=== PATIENT | male | born 1970 | race Caucasian/White ===

== ENCOUNTER 2020-12-22 13:05 | Emergency (ER) | payer SELFPAY ==
[2020-12-22] MEDS ORDERED: HYDROCODONE/CHLORPHEN 5 ML/OSYR ONE (15:47)
[2020-12-22] MEDS ORDERED: ONDANSETRON 4 MG (ODT) TAB ONE (15:47)
[2020-12-22] MEDS ORDERED: ALBUTEROL INHALER 60 PUFF/8 GM IH ONE (15:48)
[2020-12-22] MEDS ORDERED: NA CHLORIDE 0.9% 1,000 ML ONE (15:48)
[2020-12-22 16:09] LABS: Absolute Lymphocytes (CBC) 0.6 K/uL (0.7-4.9); Basophils % 0.5 % (0-1.3); Hematocrit 45.7 % (39.6-49.0); Lymphocytes % 16.9 % (15.3-44.8); MPV 8.6 fL (7.6-11.3); RBC Red Blood Cell Count 5.25 M/uL (4.33-5.43)
--- NOTE | 2020-12-22 16:16 | RAD REPORT ---
EXAM DESCRIPTION: RAD - Chest Single View - 12/22/2020 3:26 pm CLINICAL HISTORY: SOB Chest pain. COMPARISON: No comparisons FINDINGS: Portable technique limits examination quality. Bilateral pulmonary opacities are present, greater on the left and lower lobe compatible with bacteri al infection/bronchitis. The heart is normal in size. No displaced fractures.
[2020-12-22] MEDS ORDERED: KETOROLAC 30 MG/ML INJ ONE (17:14)
[2020-12-22] MEDS ORDERED: CEFTRIAXONE/SWI 1gm 1 GM/10 ML SYR ONE (17:14)
[2020-12-22] MEDS ORDERED: LEVALBUTEROL 1.25 MG/3 ML NEB ONE (18:00)
[2020-12-22] MEDS ORDERED: predniSONE 20 MG TAB ONE (18:01)
--- NOTE | 2020-12-22 18:07 | ER ---
Nurse's Notes [facility] Name: Fariha Reich Age: 49 yrs Sex: Male : 1970 Arrival Date: 12/22/2020 Time: 13:05 Bed 16 Private MD: Diagnosis: Pneumonia due to SARS-associated coronavirus Presentation: 12/22 13:47 Chief complaint: Patient states: Covid+ 12/22/2020. S/S 12/20/2020. SOB since yesterday. ca1 Hurts to breathe, feels more tired than usual. Dull pain around lower ribs. Coronavirus screen: Client denies travel out of the [place] in the last 14 days. Client reports previous positive COVID test result. Date of collection: December 22, 2020 Staff notified of need for isolation. Ebola Screen: Patient negative for fever greater than or equal to 101.5 degrees Fahrenheit, and additional compatible Ebola Virus Disease symptoms Patient denies exposure to infectious person. Patient denies travel to an Ebola-affected area in the 21 days before illness onset. No symptoms or risks identified at this time. Initial Sepsis Screen: Does the patient meet any 2 criteria? No. Patient's initial sepsis screen is negative. Does the patient have a suspected source of infection? No. Patient's initial sepsis screen is negative. Risk Assessment: Do you want to hurt yourself or someone else? Patient reports no desire to harm self or others. Onset of symptoms was December 20, 2020. 13:47 Method Of Arrival: Ambulatory ca1 13:47 Acuity: KARLEE 3 ca1 Triage Assessment: 18:27 Respiratory: Onset: The symptoms/episode began/occurred. zb 18:28 Respiratory: the patient has moderate shortness of breath. zb Historical: - Allergies: 13:50 No Known Allergies; ca1 - Home Meds: 13:50 None [Active]; ca1 - PMHx: 13:50 None; ca1 - PSHx: 13:50 None; ca1 - Immunization history:: Adult Immunizations not immunized, Flu vaccine is not up to date. - Social history:: Smoking status: Patient denies any tobacco usage or history of. Screenin:46 Abuse screen: Denies threats or abuse. Denies injuries from another. Nutritional zb screening: No deficits noted. Tuberculosis screening: No symptoms or risk factors identified. Fall Risk None identified. Assessment: 15:30 General: Appears in no apparent distress. uncomfortable, Behavior is calm, cooperative, zb appropriate for age, Reports fever for > 3 days, feeling ill for > 3 days, fatigue for >3 days. Pain: Complains of pain in left breast Pain does not radiate. Pain currently is 7 out of 10 on a pain scale. Quality of pain is described as dull. Neuro: Level of Consciousness is awake, alert, obeys commands, Oriented to person, place, time, situation. Cardiovascular: Capillary refill < 3 seconds Patient's skin is warm and dry. Rhythm is regular. Respiratory: Reports shortness of breath at rest cough that is non-productive, persistent pain with cough pain with respiration Airway is patent Respiratory effort is even, unlabored, Respiratory pattern is regular, symmetrical, Breath sounds are diminished in left lower lobe. GI: Abdomen is round. EENT: Throat is clear is pink. Derm: Skin is intact, is healthy with good turgor, Skin is dry, Skin is normal, Skin temperature is warm. Musculoskeletal: Range of motion: intact in all extremities. 16:33 Reassessment: Patient appears in no apparent distress at this time. Patient and/or zb family updated on plan of care and expected duration. Pain level reassessed. Patient is alert, oriented x 3, equal unlabored respirations, skin warm/dry/pink. ECP at bedside. Patient states symptoms have improved. 17:36 Reassessment: Patient appears in no apparent distress at this time. Patient and/or zb family updated on plan of care and expected duration. Pain level reassessed. Patient is alert, oriented x 3, equal unlabored respirations, skin warm/dry/pink. ECP at bedside. order breathing tx. Patient states feeling better. Patient states symptoms have improved. 18:28 Reassessment: Patient appears in no apparent distress at this time. Patient and/or zb family updated on plan of care and expected duration. Pain level reassessed. Patient is alert, oriented x 3, equal unlabored respirations, skin warm/dry/pink. d/c instructions given . pat states he feels better. ambulated out with . gait even and steady. Vital Signs: 13:47 BP 133 / 86; Pulse 87; Resp 19 S; Temp 98.7(TE); Pulse Ox 100% on R/A; Weight 104.33 kg ca1 (R); Height 6 ft. 2 in. (187.96 cm) (R); Pain 3/10; 15:30 BP 131 / 73; Pulse 96; Resp 18; Pulse Ox 100% on R/A; zb 16:29 BP 134 / 73; Pulse 92; Resp 20; Pulse Ox 93% on R/A; zb 17:37 Pulse 85; Resp 20; Pulse Ox 94% on R/A; zb 18:28 BP 137 / 70; Pulse 89; Resp 19; Pulse Ox 98% on R/A; zb 13:47 Body Mass Index 29.53 (104.33 kg, 187.96 cm) ca1 ED Course: 13:05 Patient arrived in ED. as 13:50 Triage completed. ca1 13:50 Arm band placed on right wrist. ca1 14:48 Geovani Hendricks NP is PHCP. pm1 14:48 Shira Amaya MD is Attending Physician. pm1 14:52 Yue Kenny RN is Primary Nurse. zb 15:26 CXR XRAY In Process Unspecified. EDMS 15:46 Patient has correct armband on for positive identification. Bed in low position. Call zb light in reach. Side rails up X 1. Adult w/ patient. Pulse ox on. NIBP on. 15:46 Inserted saline lock: 20 gauge in left antecubital area, using aseptic technique. Blood zb collected. 18:27 No provider procedures requiring assistance completed. IV discontinued, intact, zb bleeding controlled, No redness/swelling at site. Pressure dressing applied. Administered Medications: 15:33 Drug: Albuterol HFA Inhaler 2 puffs Route: Inhalation; zb 17:00 Follow up: Response: No adverse reaction; Marked relief of symptoms zb 15:33 Drug: Ondansetron 4 mg Route: PO; zb 17:00 Follow up: Response: No adverse reaction; Marked relief of symptoms zb 15:33 Drug: Tussionex Pennkinetic ER (chlorpheniramine-hydrocodone) 5 ml Route: PO; zb 17:00 Follow up: Response: No adverse reaction; Marked relief of symptoms zb 15:44 Drug: NS 0.9% 1000 ml Route: IV; Rate: 1000 ml; Site: left antecubital; zb 16:59 Drug: Rocephin (cefTRIAXone) 1 grams Route: IV; Rate: calculated rate; Site: left zb antecubital; 17:30 Follow up: Response: No adverse reaction; Marked relief of symptoms; IV Status: zb Completed infusion; IV Intake: 20ml 17:00 Drug: TORadol (ketorolac) 30 mg Route: IVP; Site: left antecubital; zb 17:38 Follow up: Response: No adverse reaction; Marked relief of symptoms; Pain is decreased zb 17:47 Drug: Xopenex (levalbuterol) 1.25 mg Route: Inhalation; zb 18:20 Follow up: Response: No adverse reaction; Marked relief of symptoms zb 17:47 Drug: predniSONE 60 mg Route: PO; zb 18:25 Follow up: Response: No adverse reaction; Marked relief of symptoms zb Intake: 17:30 IV: 20ml; Total: 20ml. zb Outcome: 18:07 Discharge ordered by . pm1 18:27 Discharged to home ambulatory, with family. zb 18:27 Condition: stable 18:27 Discharge instructions given to patient, family, Instructed on discharge instructions, follow up and referral plans. Demonstrated understanding of instructions, follow-up care, medications, Prescriptions given X 5 18:29 Patient left the ED. zb Signatures: Dispatcher [employer] Louise Cassidy Patrick, NP BREWERY PUMPER pm1 Violette Guardado RN RN ca1 Brown, Zipporah, RN RN zdavie
--- NOTE | 2020-12-22 18:07 | EDPHYS ---
Physician Documentation [facility] Name: Fariha Reich Age: 49 yrs Sex: Male : 1970 Arrival Date: 12/22/2020 Time: 13:05 Bed 16 Private MD: ED Physician Shira Amaya HPI: 12/22 15:26 This 49 yrs old Male presents to ER via Ambulatory with complaints of pm1 Shortness Of Breath - covid+, Irregular Pulse. 15:26 The patient has shortness of breath at rest. Onset: The symptoms/episode began/occurred pm1 2 day(s) ago. Duration: The symptoms are continuous. The patient's shortness of breath is aggravated by nothing, is alleviated by nothing. Associated signs and symptoms: Pertinent positives: non-productive cough, Pertinent negatives: vomiting. Severity of symptoms: in the emergency department the symptoms are unchanged. The patient has not experienced similar symptoms in the past. The patient has been recently seen by a physician: with similar presenting complaints, and apparently given a diagnosis of covid. Historical: - Allergies: 13:50 No Known Allergies; ca1 - Home Meds: 13:50 None [Active]; ca1 - PMHx: 13:50 None; ca1 - PSHx: 13:50 None; ca1 - Immunization history:: Adult Immunizations not immunized, Flu vaccine is not up to date. - Social history:: Smoking status: Patient denies any tobacco usage or history of. ROS: 15:26 Cardiovascular: Negative for chest pain, palpitations, and edema. pm1 15:26 Abdomen/GI: Negative for abdominal pain, nausea, vomiting, diarrhea, and constipation, Back: Negative for injury and pain, MS/Extremity: Negative for injury and deformity, Skin: Negative for injury, rash, and discoloration, Neuro: Negative for headache, weakness, numbness, tingling, and seizure. 15:26 Constitutional: Positive for body aches, poor PO intake. 15:26 Respiratory: Positive for cough, shortness of breath. Exam: 15:26 Constitutional: This is a well developed, well nourished patient who is awake, alert, pm1 and in no acute distress. Head/Face: Normocephalic, atraumatic. 15:26 Back: No spinal tenderness. No costovertebral tenderness. Full range of motion. Skin: Warm, dry with normal turgor. Normal color with no rashes, no lesions, and no evidence of cellulitis. MS/ Extremity: Pulses equal, no cyanosis. Neurovascular intact. Full, normal range of motion. 15:26 Cardiovascular: Exam negative for acute changes, Rate: normal, Rhythm: regular, Pulses: no pulse deficits are appreciated. 15:26 Respiratory: Exam negative for acute changes, respiratory distress, shortness of breath, Breath sounds: rhonchi, that are mild, are heard in the left posterior upper lobe and left posterior lower lobe. 15:26 Abdomen/GI: Inspection: abdomen appears normal, Palpation: abdomen is soft and non-tender, in all quadrants. 15:26 Neuro: Exam negative for acute changes, Orientation: is normal, Mentation: is normal, Motor: is normal, moves all fours. Vital Signs: 13:47 BP 133 / 86; Pulse 87; Resp 19 S; Temp 98.7(TE); Pulse Ox 100% on R/A; Weight 104.33 kg ca1 (R); Height 6 ft. 2 in. (187.96 cm) (R); Pain 3/10; 15:30 BP 131 / 73; Pulse 96; Resp 18; Pulse Ox 100% on R/A; zb 16:29 BP 134 / 73; Pulse 92; Resp 20; Pulse Ox 93% on R/A; zb 17:37 Pulse 85; Resp 20; Pulse Ox 94% on R/A; zb 18:28 BP 137 / 70; Pulse 89; Resp 19; Pulse Ox 98% on R/A; zb 13:47 Body Mass Index 29.53 (104.33 kg, 187.96 cm) ca1 MDM: 15:01 Patient medically screened. pm1 17:19 Data reviewed: vital signs. pm1 18:05 Counseling: I had a detailed discussion with the patient and/or guardian regarding: the pm1 historical points, exam findings, and any diagnostic results supporting the discharge/admit diagnosis, lab results, radiology results, the need for outpatient follow up, to return to the emergency department if symptoms worsen or persist or if there are any questions or concerns that arise at home. 12/22 15:03 Order name: Flu pm1 12/22 15:03 Order name: Strep pm1 12/22 15:03 Order name: CBC with Diff pm1 12/22 15:03 Order name: BMP pm1 12/22 15:04 Order name: Influenza Screen (A ; Complete Time: 17:17 EDMS 12/22 15:04 Order name: Group A Streptococcus Rapid Sc; Complete Time: 16:34 EDMS 12/22 15:03 Order name: CXR XRAY; Complete Time: 16:23 pm1 12/22 15:04 Order name: CBC with Automated Diff; Complete Time: 16:15 EDMS 12/22 15:04 Order name: Basic Metabolic Panel; Complete Time: 16:23 EDMS 12/22 16:26 Order name: Throat Culture EDMS 12/22 15:03 Order name: Droplet/Contact Precautions; Complete Time: 15:46 pm1 12/22 15:03 Order name: Labs collected and sent; Complete Time: 15:46 pm1 12/22 15:03 Order name: O2 Per Protocol; Complete Time: 15:46 pm1 12/22 15:03 Order name: IV Saline Lock; Complete Time: 15:45 pm1 12/22 15:14 Order name: EKG; Complete Time: 15:14 pm1 12/22 15:14 Order name: EKG - Nurse/Tech; Complete Time: 16:59 pm1 Administered Medications: 15:33 Drug: Albuterol HFA Inhaler 2 puffs Route: Inhalation; zb 17:00 Follow up: Response: No adverse reaction; Marked relief of symptoms zb 15:33 Drug: Ondansetron 4 mg Route: PO; zb 17:00 Follow up: Response: No adverse reaction; Marked relief of symptoms zb 15:33 Drug: Tussionex Pennkinetic ER (chlorpheniramine-hydrocodone) 5 ml Route: PO; zb 17:00 Follow up: Response: No adverse reaction; Marked relief of symptoms zb 15:44 Drug: NS 0.9% 1000 ml Route: IV; Rate: 1000 ml; Site: left antecubital; zb 16:59 Drug: Rocephin (cefTRIAXone) 1 grams Route: IV; Rate: calculated rate; Site: left zb antecubital; 17:30 Follow up: Response: No adverse reaction; Marked relief of symptoms; IV Status: zb Completed infusion; IV Intake: 20ml 17:00 Drug: TORadol (ketorolac) 30 mg Route: IVP; Site: left antecubital; zb 17:38 Follow up: Response: No adverse reaction; Marked relief of symptoms; Pain is decreased zb 17:47 Drug: Xopenex (levalbuterol) 1.25 mg Route: Inhalation; zb 18:20 Follow up: Response: No adverse reaction; Marked relief of symptoms zb 17:47 Drug: predniSONE 60 mg Route: PO; zb 18:25 Follow up: Response: No adverse reaction; Marked relief of symptoms zb Disposition: 12/22/20 18:07 Discharged to Home. Impression: Pneumonia due to SARS-associated coronavirus. - Condition is Stable. - Discharge Instructions: COVID-19. - Prescriptions for Prednisone 20 mg Oral Tablet - take 3 tablet by ORAL route once daily for 5 days; 15 tablet. Zithromax Z- Randell 250 mg Oral Tablet - take 1 tablet by ORAL route as directed for 5 days Day 1 - take two (2) tablets one time. Day 2, 3, 4 , 5 take one (1) tablet once daily.; 6 tablet. Albuterol Sulfate 90 mcg/actuation - inhale 1-2 puff by INHALATION route every 4-6 hours; 1 Inhaler. Guaifenesin AC 10- 100 mg/5 mL Oral Liquid - take 10 milliliter by ORAL route every 4 hours As needed; 240 milliliter. Zofran ODT 4 mg Oral tablet,disintegrating - take 1 tablet by ORAL route every 8 hours As needed; 12 tablet. - Medication Reconciliation Form, Thank You Letter, Antibiotic Education, Prescription Opioid Use, Work release form form. - Follow up: Emergency Department; When: As needed; Reason: Worsening of condition. Follow up: Private Physician; When: 2 - 3 days; Reason: Recheck today's complaints, Continuance of care, Re-evaluation by your physician. - Problem is new. - Symptoms have improved. Addendum: 12/25/2020 20:22 Co-signature as Attending Physician, Shira Amaya MD. m a2 Signatures: Dispatcher [employer] EDMS Geovani Hendricks, KATHERINE ENTERPRISE ENGINEER pm1 Shira Amaya MD MD ma2 Violette Guardado RN RN Yue Espinoza RN RN zb Corrections: (The following items were deleted from the chart) 12/22 18:29 18:07 12/22/2020 18:07 Discharged to Home. Impression: Pneumonia due to SARS-associated zb coronavirus. Condition is Stable. Forms are Medication Reconciliation Form, Thank You Letter, Antibiotic Education, Prescription Opioid Use. Follow up: Emergency Department; When: As needed; Reason: Worsening of condition. Follow up: Private Physician; When: 2 - 3 days; Reason: Recheck today's complaints, Continuance of care, Re-evaluation by your physician. Problem is new. Symptoms have improved. pm1
[2020-12-22 18:40] VITALS: TEMP 98.7
[2020-12-22 18:47] VITALS: BP 137/70; O2SAT 98
--- NOTE | 2020-12-23 09:19 | EKG ---
Test Date: 2020-12-22 Test Time: 16:54:02 Tnt Line Supervisor: PAULETTE MEASUREMENT RESULTS: Intervals: Rate: 91 OK: 168 QRSD: 94 QT: 342 QTc: 420 [place]: P: 60 OK: 168 QRS: -4 T: 15 INTERPRETIVE STATEMENTS: Normal sinus rhythm Right atrial enlargement Incomplete right bundle branch block Borderline ECG No previous ECG available for comparison Electronically Signed On 12-23-20 09:17:17 CDT by Zain Cuevas
== END 2020-12-22 18:29 | disposition home or self-care (01) ==
LOC: ER 13:05
DX: U07.1 COVID-19 (principal); J12.82 Pneumonia due to coronavirus disease 2019
CPT/HCPCS: 36415; 71045; 80048; 85025; 87070; 87081; 87804; 93005; 96365; 96375; 99284; J0696; J7030; J7512